=== PATIENT | male | born 1965 | race American Indian/Alaskan Native ===

== ENCOUNTER 2016-06-14 11:38 | Emergency (ER) | payer MEDICAID ==
--- NOTE | 2016-06-14 11:42 | EDM.PDOC ---
ED HPI ENT - General Chief Complaint: ENT Problem Stated Complaint: [id number] CANT RID OF COLD OVER 1 MONTH Time Seen by Provider: 06/14/16 11:41 Source of Information: Reports: Patient, Old records, RN History Limitations: Reports: No limitations - History of Present Illness INITIAL COMMENTS - FREE TEXT/NARRATIVE: C/O congestion, cold Sx's for over 1 month. Pt report sinus drainage, pain and pressure that began 3 months ago, and went away after one month, but came pain. Now he c/o nearly 2 months of sinus congestion and pressure. Admits to mild but frequent cough. Denies fever. Timing/Duration: Reports: Constant Severity: moderate Location: Reports: nose, throat Improves with: Reports: None Worsens with: Reports: None Associated Symptoms: Reports: no other symptoms Treatments [employer]: Reports: Home treatments - Related Data Allergies/ADRs: Allergies Allergy/AdvReac Type Severity Reaction Status Date / Time No Known Allergies Allergy Verified 06/14/16 11:48 Home Meds: Home Meds . [No Known Home Meds] 06/25/15 [History] Past Medical History Cardiovascular History: Reports: Hypertension Musculoskeletal History: Reports: Fracture - Infectious Disease History Infectious Disease History: Reports: Chicken pox Social & Family History - Family History Family Medical History: Noncontributory - Tobacco Use Smoking Status *Q: Current Status Unknown - Living Situation & Occupation Living situation: Reports: with family ED ROS ENT - Review of Systems Review Of Systems: ROS reveals no pertinent complaints other than HPI. ED EXAM, ENT - Physical Exam Exam: See Below Exam Limited By: No limitations General Appearance: alert, WD/WN, no apparent distress Eye Exam: bilateral eye: normal inspection Ears: normal external exam, normal canal, hearing grossly normal, normal TMs Nose: no blood, injected turbinates (with purulent sinus discharge) Mouth/Throat: Normal inspection, Normal gums, Normal lips, Normal oropharynx Head: atraumatic, normocephalic Neck: normal inspection, supple, non-tender, full range of motion. No: lymphadenopathy (L), lymphadenopathy (R) Respiratory/Chest: no respiratory distress, no accessory muscle use, decreased breath sounds, crackles (in bases, clears with cough). No: rales, rhonchi, wheezing Cardiovascular: normal peripheral pulses, regular rate, rhythm, no edema, no gallop, no JVD, no murmur, no rub Back: normal inspection Extremities: normal inspection Neurological: alert, oriented, CN II-XII intact, normal cognition, normal gait, no motor/sensory deficits Psychiatric: normal affect, normal mood Skin: Warm, Dry, Intact, Normal color, No rash Course - Vital Signs Last Recorded V/S: Last Vital Signs Temp 36.1 C 06/14/16 11:48 Pulse 81 06/14/16 11:48 Resp 16 06/14/16 11:48 BP 125/80 06/14/16 11:48 Pulse Ox 99 06/14/16 11:48 - Orders/Labs/Meds Orders: Active Orders 24 hr Category Date Time Status Chest 2V [CR] Stat Exams 06/14/16 12:09 Taken CULTURE STREP A CONFIRMATION [RM] Stat Lab 06/14/16 12:10 Results STREP SCRN A RAPID W CULT CONF [RM] Stat Lab 06/14/16 12:10 Results Labs: Rapid Strep: negative Influenza A/B: negative - Radiology Interpretation Free Text/Narrative:: CXR: no focal infiltrates or evidence of pneumonia, see Rad. report. CT Results Date: 06/14/16 Departure - Departure Time of Disposition: 12:49 Disposition: Home, Self-Care 01 Condition: fair Clinical Impression: Sinusitis Qualifiers: Sinusitis location: unspecified location Chronicity: acute Recurrence: non- recurrent Qualified Code(s): J01.90 - Acute sinusitis, unspecified Instructions: Sinusitis, Adult Forms: ED Department Discharge Additional Instructions: Rx: Augmentin 875mg Rx: Claritin-D 24 Hour Follow up in clinic in 7 to 10 days for recheck. - My Orders Last 24 Hours: My Active Orders 06/14/16 12:09 Chest 2V [CR] Stat 06/14/16 12:10 CULTURE STREP A CONFIRMATION [RM] Stat STREP SCRN A RAPID W CULT CONF [RM] Stat - Assessment/Plan Last 24 Hours: My Active Orders 06/14/16 12:09 Chest 2V [CR] Stat 06/14/16 12:10 CULTURE STREP A CONFIRMATION [RM] Stat STREP SCRN A RAPID W CULT CONF [RM] Stat
[2016-06-14 11:53] VITALS: BP 125/80
--- NOTE | 2016-06-14 13:23 | CR ---
CLINICAL HISTORY: 50-year-old male with cough. INTERPRETATION: Coarse accentuation central lung markings (bronchitis). No focal lobar pneumonia and no sign of atelectasis/collapse. Hypertrophic marginal spondylosis, mid and lower thoracic spine. Normal cardiac silhouette without alveolar edema or dependent effusion. No lung mass, hilar lymphadenopathy or abnormal focal lobar consolidation. No pneumothorax. CONCLUSION: Bronchitis.
== END 2016-06-14 13:08 | disposition home or self-care (01) ==
LOC: DL.ED 11:38
DX: J01.90 Acute sinusitis, unspecified (principal); I10 Essential (primary) hypertension
CPT/HCPCS: 71020; 87081; 87430; 87804; 99284

== ENCOUNTER 2016-07-08 09:36 | Emergency (ER) | payer MEDICAID ==
--- NOTE | 2016-07-08 10:32 | EDM.PDOC ---
ED HPI GENERAL MEDICAL PROBLEM - General Chief Complaint: General Stated Complaint: TOOTH Time Seen by Provider: 07/08/16 10:27 Source of Information: Reports: Patient History Limitations: Reports: No limitations - History of Present Illness INITIAL COMMENTS - FREE TEXT/NARRATIVE: Pt states that he has had broken tooth for the past year but pain started a few days ago. states that he is not able to get in to see dentist until next week. Onset Date: 07/06/16 Duration: Constant Quality: Reports: Ache Severity: moderate Worsens with: Reports: Eating Treatments PRODUCT LEAD: Reports: NSAIDS Oral/Mouth Pain Score (Numeric/FACES): 9 - Related Data Allergies Allergy/AdvReac Type Severity Reaction Status Date / Time No Known Allergies Allergy Verified 07/08/16 09:49 Home Meds: Home Meds Ibuprofen 800 mg PO ASDIRECTED PRN 07/08/16 [History] Past Medical History HEENT History: Reports: None Cardiovascular History: Reports: Hypertension Respiratory History: Reports: None Gastrointestinal History: Reports: None Genitourinary History: Reports: None Musculoskeletal History: Reports: Fracture Neurological History: Reports: None Psychiatric History: Reports: None Endocrine/Metabolic History: Reports: Diabetes, type II Hematologic History: Reports: None Immunologic History: Reports: None Oncologic (Cancer) History: Reports: None Dermatologic History: Reports: None - Infectious Disease History Infectious Disease History: Reports: Chicken pox - Past Surgical History Head Surgeries/Procedures: Reports: None Other Endocrine Surgeries/Procedures: states not taking his metformin this year Social & Family History - Family History Family Medical History: Noncontributory - Tobacco Use Smoking Status *Q: Current Every Day Smoker Years of Tobacco use: 35 Packs/Tins Daily: 1 Second Hand Smoke Exposure: No - Caffeine Use Caffeine Use: Reports: Coffee - Recreational Drug Use Recreational Drug Use: No - Living Situation & Occupation Living situation: Reports: with family ED ROS GENERAL - Review of Systems Review Of Systems: See Below HEENT: Reports: Dental pain ED EXAM, GENERAL - Physical Exam Exam: See Below Exam Limited By: No limitations General Appearance: alert, WD/WN, no apparent distress Throat/Mouth: Normal inspection, Normal lips, Normal gums, Normal oropharynx, Normal voice, No airway compromise, Other (left upper fractured and missing teeth, mild gum redness and edema, tender to palpation of gums) Respiratory/Chest: no respiratory distress, lungs clear, normal breath sounds, no accessory muscle use, chest non-tender Cardiovascular: normal peripheral pulses, regular rate, rhythm, no edema, no gallop, no JVD, no murmur, no rub Neurological: alert, oriented Course - Vital Signs Last Recorded V/S: Last Vital Signs Temp 96.2 F 07/08/16 09:44 Pulse 64 07/08/16 09:44 Resp 16 07/08/16 09:44 BP 163/85 H 07/08/16 09:44 Pulse Ox 100 07/08/16 09:44 Departure - Departure Time of Disposition: 10:30 Disposition: Home, Self-Care 01 Clinical Impression: Tooth decay Instructions: Dental Caries, Dental Care and Dentist Visits Forms: ED Department Discharge Additional Instructions: Make sure to keep dentist appointment next week. Take antibiotic until gone. Take Ibuprofen for pain. Return for worsening symptoms.
== END 2016-07-08 10:40 | disposition home or self-care (01) ==
LOC: DL.ED 09:36
CPT/HCPCS: 99283